=== PATIENT | female | born 1975 | race Caucasian/White ===

== ENCOUNTER → 2024-01-29 16:18 | Outpatient (REF) | payer OTHER, SELFPAY | LOC: RAD 16:18 | PROVIDERS: ATTENDING PHYSICIAN Obstetrics & Gynecology Gynecology; FAMILY PHYSICIAN Family Medicine | DX: N83.202 Unspecified ovarian cyst, left side (principal) | CPT/HCPCS: 76830; 76856 ==

== ENCOUNTER → 2024-02-09 09:10 | Outpatient (REF) | payer OTHER, SELFPAY | LOC: WDC 09:10 | PROVIDERS: ATTENDING PHYSICIAN Family Medicine | DX: Z12.31 Encounter for screening mammogram for malignant neoplasm of breast (principal) | CPT/HCPCS: 77063; 77067 ==

== ENCOUNTER → 2024-02-14 08:53 | Outpatient (REF) | payer OTHER, SELFPAY | LOC: WDC 08:53 | PROVIDERS: ATTENDING PHYSICIAN Family Medicine | DX: R92.8 Other abnormal and inconclusive findings on diagnostic imaging of breast (principal) | CPT/HCPCS: 76642 ==

== ENCOUNTER → 2025-04-14 16:31 | Outpatient (REF) | payer OTHER, SELFPAY | LOC: WDC 16:31 | PROVIDERS: ATTENDING PHYSICIAN Obstetrics & Gynecology Gynecology; FAMILY PHYSICIAN Family Medicine | DX: Z12.31 Encounter for screening mammogram for malignant neoplasm of breast (principal) | CPT/HCPCS: 77063; 77067 ==

== ENCOUNTER → 2025-04-28 09:52 | Outpatient (REF) | payer OTHER, SELFPAY | LOC: WDC 09:52 | PROVIDERS: ATTENDING PHYSICIAN Obstetrics & Gynecology Gynecology; FAMILY PHYSICIAN Family Medicine | DX: R92.8 Other abnormal and inconclusive findings on diagnostic imaging of breast (principal) | CPT/HCPCS: 76642 ==

== ENCOUNTER 2025-06-26 09:52 | Emergency (ER) | payer OTHER, SELFPAY ==
[2025-06-26 10:00] VITALS: BP 146/71
--- NOTE | 2025-06-26 11:04 | ED.GENMED ---
History of Present Illness
<Kalie Ireland MD, Resident - Last Filed: 06/26/25 16:11>
General
Chief Complaint: Heart Rate Problem
Source: patient
Exam Limitations: none
Time Seen by Provider: 06/26/25 10:51
Nursing documentation reviewed up to this point in time: agreed with except (Left ear throbbing)
History of Present Illness
History of Present Illness:
50-year-old female with past medical history of hypertension, frequent headaches, IBS comes to the ED due to increased left ear throbbing that began around 4:30 AM. She spoke with her doctor and told them that her heart was racing. Her resting
heart rate was around 90 while it is usually in the 60s at home. She was told to come to the ED to get her heart function checked. She has not had any fever or chills, but has been feeling nasally congested. Has had no chest pain or difficulty
breathing. Has had no trouble with hearing as well. She has a headache all over her head does not have any sore throat. Does not have any sick contacts to her knowledge. She had a recent chiropractor visit two days ago where they worked with her
cervical spine.
Past History
<Kalie Ireland MD, Resident - Last Filed: 06/26/25 16:11>
Past History
ED Past Medical History: Fibromyalgia, GERD, HTN, Other (Irritable bowel syndrome, migraine headaches) and Other (migraines/IBS/Lyme's)
ED Past Surgical History: and Gynecological (Hysterectomy)
Social History
Tobacco: Non-smoker
Alcohol: None
Personal:
Living: with family
Employment: Employed
Family History
Family History: Cancer (Colon cancer paternal grandmother); Negative CAD
Review of Systems
<Kalie Ireland MD, Resident - Last Filed: 06/26/25 16:11>
Review of Systems
Allergies reviewed?: Yes
Constitutional: Reports no symptoms
EENT: Reports other (Left ear throbbing)
Respiratory: Reports no symptoms
Cardiac: Reports other (Increased resting heart)
ABD/GI: Reports no symptoms
: Reports no symptoms
Musculoskeletal: Reports no symptoms
Skin: Reports no symptoms
Neurological: Reports headache
Endocrine: Reports no symptoms
Hematologic/Lymphatic: Reports no symptoms
Psychiatric: Reports no symptoms
Phy Exam
<Kalie Ireland MD, Resident - Last Filed: 06/26/25 16:11>
General Physical Exam
General Presentation: well appearing and no apparent distress
General Skin: warm and dry
General Habitus: normal
General Mental: alert
ENT Exam
ENT Exam: EOMI, TM's normal, pharynx normal, neck supple and swallowing well
Cardiovascular Exam
Cardiovascular Exam: regular rate/rhythm, no edema and no murmur
Pulmonary Exam
Pulmonary Exam: lungs clear, no respiratory distress, no crackles and no wheezing
Gastrointestinal Exam
Gastrointestinal Exam: normal bowel sounds, non tender, soft and non distended
Neurological Exam
Neurological Exam: alert, oriented x3, no motor deficits and no sensory deficits
Skin Exam
Skin Exam: normal color, warm/dry and no rash
Psychiatric Exam
Psychiatric Exam: normal mood/affect
Course
<Kalie Ireland MD, Resident - Last Filed: 06/26/25 16:11>
Orders/Labs/Results
Orders:
Orders
06/26/25 09:55
EKG [Electrocardiogram (*1)] Urgent
Reason for Study: Tachycardia
06/26/25 09:56
EKG- Treatment ONCE
06/26/25 12:49
CT Head & Neck Angio W/wo IV Urgent
Comment:
Reason For Exam: L neck/ear throbbing, recent chiropractor, r/o dis
06/26/25 13:00
Basic Metabolic Panel Urgent
Complete Blood Count/With Diff Urgent
Abnormal Lab Results
06/26/25
13:00
WBC 12.2 H 10^3/uL
(4.8-10.8)
MCH 31.5 H pg
(27.0-31.0)
RDW 10.9 L %
(11.5-14.5)
Absolute Neuts (auto) 7.9 H 10^3/uL
(1.4-6.5)
Absolute Monos (auto) 0.9 H 10^3/uL
(0.1-0.6)
Glucose 112 H mg/dl
(70-99)
06/26/25 13:00
06/26/25 13:00
Vital Signs
Initial and Last Documented VS:
Initial Vital Signs
Temp Pulse Resp BP Pulse Ox
97.6 F 75 20 146/71 98
06/26/25 10:00 06/26/25 10:00 06/26/25 10:00 06/26/25 10:00 06/26/25 10:00
Last Documented Vital Signs
Temp Pulse Resp BP Pulse Ox
97.6 F 83 15 119/67 100
06/26/25 10:00 06/26/25 12:45 06/26/25 12:45 06/26/25 12:00 06/26/25 12:45
<Surinder Davis, - Last Filed: 06/26/25 13:23>
Orders/Labs/Results
Orders:
Orders
06/26/25 09:55
EKG [Electrocardiogram (*1)] Urgent
Reason for Study: Tachycardia
06/26/25 09:56
EKG- Treatment ONCE
06/26/25 12:49
CT Head & Neck Angio W/wo IV Urgent
Comment:
Reason For Exam: L neck/ear throbbing, recent chiropractor, r/o dis
06/26/25 13:00
Basic Metabolic Panel Urgent
Complete Blood Count/With Diff Urgent
Abnormal Lab Results
06/26/25
13:00
WBC 12.2 H 10^3/uL
(4.8-10.8)
MCH 31.5 H pg
(27.0-31.0)
RDW 10.9 L %
(11.5-14.5)
Absolute Neuts (auto) 7.9 H 10^3/uL
(1.4-6.5)
Absolute Monos (auto) 0.9 H 10^3/uL
(0.1-0.6)
Glucose 112 H mg/dl
(70-99)
06/26/25 13:00
06/26/25 13:00
Vital Signs
Initial and Last Documented VS:
Initial Vital Signs
Temp Pulse Resp BP Pulse Ox
97.6 F 75 20 146/71 98
06/26/25 10:00 06/26/25 10:00 06/26/25 10:00 06/26/25 10:00 06/26/25 10:00
Last Documented Vital Signs
Temp Pulse Resp BP Pulse Ox
97.6 F 83 15 119/67 100
06/26/25 10:00 06/26/25 12:45 06/26/25 12:45 06/26/25 12:00 06/26/25 12:45
<Kalie Ireland MD, Resident - Last Filed: 06/26/25 16:11>
MDM/Problems Addressed
Differential Diagnosis Includes:
Carotid Dissection, Rhinosinusitis, Allergic/nonallergic rhinitis
MDM/Problems Addressed:
50-year-old female with past medical history of hypertension, frequent headaches, IBS comes to the ED due to increased left ear throbbing that began around 4:30 AM.
EKG unremarkable, without any acute changes.
Ears clear, no signs of bacterial infection
Left ear throbbing may be due to eustachian tube dysfunction due to rhinosinusitis or allergic/non-allergic rhinitis.
Due to acute nature of symptoms, may be related to carotid dissection following her recent chiropractor visit. Will get CTA Head+Neck to check for any dissection.
No abnormalities seen on CTA Head and Neck
Patient stable and okay to be discharged with instructions to try over the counter nasal spray, allergy medication and decongestants as needed. She can also continue eustacian tube releasing exercises.
Chronic conditions affecting care: HTN
<Kalie Ireland MD, Resident - Last Filed: 06/26/25 16:11>
*Pulse Oximetry
SaO2: 98
Oxygen Mode of Delivery: Room air
Patient hypoxic: no
*Critical Care Note
Total Time (30-74mins, 75-104mins- exclusive of procedures): Not Applicable
ED Attending Note
<Kalie Ireland MD, Resident - Last Filed: 06/26/25 16:11>
-
Portions of this chart may have been created with voice recognition software.� Occasional wrong word or��sound alike� substitutions may have occurred due to the inherent limitations of voice recognition software.
<Surinder Davis, - Last Filed: 06/26/25 13:23>
ED Attending Note
Patient seen and examined by attending physician: Yes
I performed a history and physical exam of patient and discussed management with resident, I reviewed resident's note and agree with documented findings and plan of care.: Yes
ED Attending Note:
Note:
CHIEF COMPLAINT(S)
Throbbing sensation in the left ear and history of severe vertigo.
HISTORY OF PRESENT ILLNESS
The patient is a 50-year-old female presenting with a throbbing sensation in the left ear, described as pulsatile. She initially noticed this symptom at work during lunch, felt rubbing the area helped improve it, but it recurred upon waking up at
4:30 AM. She reports no fever and feels generally well. Theres no dizziness currently, though she has a history of severe vertigo. She experiences mild symptoms anay to a cold a few weeks back without fever. She notes recent sensitivity to light, an
episode of headache, and ocular redness, which resolved after using eye drops. She reports receiving chiropractic neck manipulation two days ago and expresses concern regarding potential vascular injury. She inquires about the relationship between
the ear sensation and her heart rate, which was elevated at 99 bpm at home, but normalizes to 67 bpm with normal blood pressure in the clinic. The patient has been educated on the potential risks of vascular dissection due to recent chiropractic
manipulation, weighing the benefits and risks of advanced imaging for confirmation.
PAST MEDICAL AND SURGICAL HISTORY
- Hypertension, managed with a small dose of lisinopril.
- Vertigo.
- Migraines.
- History of melanoma with surgical excision.
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
- sections.
- Hysterectomy.
CHRONIC MEDICAL CONDITIONS SIGNIFICANTLY AFFECTING CARE
- Hypertension.
- Vertigo.
- Migraines.
- History of melanoma.
- Late-stage Lyme disease.
SOCIAL HISTORY
- Recent chiropractic neck manipulation.
PHYSICAL EXAM
General: Alert, no acute distress.
Skin: Warm, dry.
Head: Normocephalic, atraumatic.
Neck: Supple, trachea midline.
Eyes, Ears, Nose, Mouth, and Throat: Oral mucosa moist.
Cardiovascular: Normal peripheral perfusion, No edema.
Respiratory: Respirations are non-labored.
Gastrointestinal: Abdomen nondistended.
Back: Normal range of motion, Normal alignment.
Musculoskeletal: Normal range of motion, normal strength.
Neurological: Alert and oriented to person, place, time, and situation, No focal neurological deficit observed.
Psychiatric: Cooperative, appropriate mood & affect.
PLAN
- Discussed shared decision-making regarding CT angiography to rule out vascular injury following chiropractic manipulation.
- Educate patient on symptoms of vascular dissection and advise immediate return if symptomatic changes occur (e.g., vision change, severe headache, or new-onset dizziness).
- Monitor and manage hypertension, ensure follow-up with primary care for ongoing migraine and vertigo management.
DIFFERENTIAL DIAGNOSIS
The Differential Diagnosis includes, in no particular order and is not limited to:
1. Middle ear effusion.
2. Vascular dissection.
3. Migraine variant.
4. Temporomandibular joint disorder.
5. Otitis media.
6. Vestibular migraine.
7. Cervical radiculopathy.
8. Hypertensive headache.
9. Anxiety-related palpitations.
10. Earwax impaction.
Disposition:
SUMMARY OF ENCOUNTER
The patient is a 50-year-old female presenting with a throbbing and pulsatile sensation in the left ear following recent chiropractic neck manipulation. An ear exam was performed and found to be normal. Due to the recent chiropractic manipulation,
there is a concern about potential vascular dissection, although the suspicion is low. After shared decision-making and considering the patients concerns, it was decided to proceed with imaging to rule out vascular dissection. The plan includes
discharging the patient if imaging is negative.
PLAN
- Proceed with imaging to rule out vascular dissection following chiropractic manipulation.
- Plan for discharge if imaging results are negative for any acute pathology.
PATIENT EDUCATION AND COUNSELING
The patient was educated on the symptoms and risks of vascular dissection and advised to seek immediate medical attention if symptoms such as vision changes, severe headache, or new-onset dizziness occur.
FOLLOW-UP INSTRUCTIONS
Please call the office immediately to schedule a follow-up visit.
MEDICAL DECISION MAKING
-Complexity of Data Reviewed: Chronic conditions affecting care include hypertension, vertigo, migraines, history of melanoma, and late-stage Lyme disease.
-Data:
Category 1
- Imaging was considered to rule out vascular dissection, given the recent chiropractic manipulation and the patients symptoms.
Category 2
- No additional data from independent historians was specifically mentioned.
Category 3
- No specific discussions with other healthcare providers were documented.
-Risk:
- Prescription medication management was not specified.
- Imaging was considered and ordered to rule out potential complications post-chiropractic manipulation.
DIAGNOSIS
1. Throbbing and pulsatile sensation in ear post-chiropractic manipulation � R09.89 (Other specified symptoms and signs involving the circulatory and respiratory systems)
2. Suspected vascular dissection, to be ruled out � I77.79 (Other specified disorders of arteries and arterioles)
Discharge Plan
Departure
Patient Disposition: Home (Routine Discharge)
Date of Disposition: 06/26/25
Time of Disposition: 16:10
Patient with high blood pressure during this ER visit?: Yes
Condition: Good
Covid-19: Not Applicable
Discharge Problem:
Acute rhinosinusitis
Instructions: Eustachian tube problems, BLOOD PRESSURE
Prescriptions:
No Action
evening primrose oil 500 MG capsule
1,000 mg PO DAILY
cetirizine 10 MG tablet
10 mg PO DAILY
vitamin E [E-400] 400 UNIT capsule
400 unit PO DAILY
triamcinolone acetonide [Nasacort] 10.8 ML aerosol,spray
1 spray intranasal DAILY
potassium gluconate 99 MG tablet
99 mg PO QPM
cholecalciferol (vitamin D3) [Vitamin D3] 2,000 UNIT capsule
2,000 unit PO DAILY
omega 8-lxe-jab-fish oil 1 EACH capsule
1 ea PO DAILY
Magnesium
1 tab PO QPM
Tumeric
500 mg PO DAILY
methylprednisolone [Medrol (Alvarez)] 4 MG tablets,dose pack
4 tab PO . DIRECT Qty: 1 0RF
epinephrine [EpiPen] 0.3 MG/0.3/SYRINGE auto-injector
0.3 mg IM PER PROTOCOL Qty: 1 1RF
famotidine 20 MG tablet
20 mg PO BID Qty: 60 0RF
Referrals:
Doroteo Johnson DO [Family Provider, Family Practice]
Activity Restrictions/Additional Instructions:
Please try over the counter nasal spray, allergy medication and decongestants as needed.
As discussed, the results of your CT scanning were negative, showed no carotid abnormalities
Please follow up with your PCP for further follow up.
You can also continue eustacian tube releasing massage exercises.
Interventions
Interventions:
*Risk Screen - Suicide Last Done: 06/26/25 10:00
*General Assessment Last Done: 06/26/25 10:00
*Neglect/Abuse Screening Last Done: 06/26/25 10:00
*ED- Fall Risk Assessment Last Done: 06/26/25 13:04
ED- Cardiac Assessment Last Done: 06/26/25 11:46
ED- Pulmonary Assessment Last Done: 06/26/25 11:47
Discharge Date and Time
Print Language: AMHARIC
[2025-06-26 11:10] VITALS: BP 117/70
[2025-06-26 12:00] VITALS: BP 119/67
[2025-06-26 13:14] LABS: Hematocrit 44.2 % (37.0-47.0); Hemoglobin 15.1 g/dL (12.0-16.0); Mean Corp Hgb Conc. 34.2 g/dL (33.0-37.0); Mean Corpuscular Volume 92.3 fL (81.0-99.0); Nucleated Red Blood Cells % 0 %; Platelet Count 303 10^3/uL (130-400); Red Cell Dist. Width 10.9 % (11.5-14.5)
[2025-06-26 13:35] LABS: Blood Urea Nitrogen 10 mg/dl (7-17); Calcium 10.1 mg/dl (8.4-10.2); Carbon Dioxide 28 mmol/L (22-30); Chloride 107 mmol/L (98-107); Glucose 112 mg/dl (70-99); Potassium 4.7 mmol/L (3.5-5.1); Sodium 145 mmol/L (135-145); eGFR > 60.00
== END 2025-06-26 16:20 | disposition home or self-care (01) ==
LOC: EMR 09:52
PROVIDERS: EMERGENCY PHYSICIAN Emergency Medicine; FAMILY PHYSICIAN Family Medicine
DX: J01.90 Acute sinusitis, unspecified (principal); I10 Essential (primary) hypertension; K21.9 Gastro-esophageal reflux disease without esophagitis; K58.9 Irritable bowel syndrome, unspecified; M79.7 Fibromyalgia; G43.909 Migraine, unspecified, not intractable, without status migrainosus; Z85.820 Personal history of malignant melanoma of skin; Z80.0 Family history of malignant neoplasm of digestive organs
CPT/HCPCS: 99284; 70496; 70498; 80048; 85025; 93005; Q9967